=== PATIENT | female | born 1995 | race Caucasian/White ===

== ENCOUNTER 2016-05-06 08:13 | Emergency (ER) | payer MEDICAID ==
[~2016-05-06 08:13] MED LIST: WELLBUTRIN SR150 M1 PO
--- NOTE | 2016-05-07 16:41 | ER ---
ADMIT: 05/06/2016 RM/LOC: ER [facility] MR#: [id number] [address] [id number] [address] [place] [address] Emergency Room Report SEX: F AGE: 20 : 1995 DATE: 05/06/2016 ADDENDUM: A 20-year-old female coming in with lymphadenitis, left axillary area. The lymph node area is tender and swollen slight. I put her on Keflex 500, 2 p.o. q.12 x7 days, Bactrim DS two p.o. q.12 hours x7 days. Should follow up in [facility] next week. CONDITION ON DISCHARGE: Good. Pj Zheng MD/ jammiel JOB #: [id number] CC: Pj Zheng MD, Attending Physician Marilyn Aguirre MD, Family Physician
== END 2016-05-06 09:15 | disposition home or self-care (01) ==
LOC: ER 08:13
DX: I88.9 Nonspecific lymphadenitis, unspecified (principal); F17.210 Nicotine dependence, cigarettes, uncomplicated; Z86.59 Personal history of other mental and behavioral disorders; Z79.899 Other long term (current) drug therapy